=== PATIENT | male | born 1985 | race Caucasian/White ===

== ENCOUNTER 2018-07-26 09:11 | Day surgery (SDC) | payer BC ==
[2018-07-23 08:56] VITALS: BMI 25.8
[2018-07-26 11:22] LABS: Hemoglobin 13.7 g/dL (14.0-18.0); Mean Corpuscular Hemoglobin 31.6 pg (27.0-31.0); Mean Platelet Volume 7.5 fL (7.4-10.4); Platelet Count 190 thou/uL (130-400); RBC Distribution Width 11.2 % (11.5-14.5); Red Blood Cell (RBC) Count 4.34 mill/uL (4.70-6.10); White Blood Cell (WBC) Count 6.5 thou/uL (4.8-10.8)
[2018-07-26 11:42] LABS: Anion Gap 14 mmol/L (10-20); BUN (Urea Nitrogen) 19 mg/dL (8.9-20.6); Calc. Creatinine Clearance 124 mL/min (70-130); Calcium 9.2 mg/dL (7.8-10.44); Carbon Dioxide 21 mmol/L (22-29); Chloride 107 mmol/L (98-107); Estimated GFR-MDRD Greater than 90; Glucose 107 mg/dL (70-105); Sodium 138 mmol/L (136-145)
[2018-07-26] MEDS ORDERED: Midazolam HCl 2 mg/2 ml Vial ONE (12:02)
[2018-07-26] MEDS ORDERED: CEFAZOLIN 2 GM/50 ML BAG ONE (12:42)
[2018-07-26] MEDS ORDERED: Fentanyl 250 MCG/5 ML VIAL ONE (13:23)
[2018-07-26] MEDS ORDERED: Fentanyl 100 MCG/2 ML VIAL ONE ×2 (15:22→15:56)
[2018-07-26] MEDS ORDERED: Glycopyrrolate 0.2 MG/ML 5 ML SYRINGE ONE (16:30)
[2018-07-26] MEDS ORDERED: Ondansetron PF 4 MG/2 ML Vial ONE (16:30)
[2018-07-26] MEDS ORDERED: Ketorolac Tromethamine 30 MG/ML VIAL ONE (16:30)
[2018-07-26] MEDS ORDERED: Rocuronium Bromide 10 MG/ML (10ML VIAL) ONE (16:30)
[2018-07-26] MEDS ORDERED: Lidocaine 1% PF 5 ML VIAL ONE (16:30)
[2018-07-26] MEDS ORDERED: PROPOFOL 200 MG/20 ML VIAL ONE (16:30)
[2018-07-26] MEDS ORDERED: Dexamethasone 20 MG/5 ML VIAL ONE (16:30)
[2018-07-26] MEDS ORDERED: HYDROcodone/Acetaminophen 5/325 mg Tablet ONE (17:31)
--- NOTE | 2018-07-26 21:53 | OP ---
DATE OF PROCEDURE: 07/26/2018 [employer] ME[employer]IC: Ly Mckeon PA-C PROCEDURE PERFORMED: Left L5-S1 microdiskectomy. DESCRIPTION OF PROCEDURE: The patient was brought to the operating room and intubated. He was rolled in a prone position on gel-filled chest rolls. An incision was made exposing left L5-S1 level. The level was confirmed by x-ray. We performed a left L5-S1 hemilaminectomy, identified the left S1 nerve root and beneath there was a herniated disk fragment. This was removed in multiple fragments and a complete decompression of left S1 was achieved. The wound was then extensively irrigated and maximum hemostasis was secured. Vancomycin powder was applied and the wound was closed in anatomic layers. Job ID: [id number]
== END 2018-07-26 17:53 | disposition home or self-care (01) ==
LOC: SDC 09:11
PROVIDERS: ATTEND Neurological Surgery
PROC: 0SB40ZZ Excision of Lumbosacral Disc, Open Approach (ICD-10-PCS; principal; 2018-07-26)
DX: M51.17 Intervertebral disc disorders with radiculopathy, lumbosacral region (principal)
CPT/HCPCS: 36415; 76000; 80048; 85027; 93005; 93010; J1100; J1885; J2001; J2250; J2405; J2704; J3010; J3370; J3490